=== PATIENT | female | born 1960 | race Caucasian/White ===

== ENCOUNTER → 2019-09-04 09:09 | Outpatient (CLI) | payer OTHER, SELFPAY ==
--- NOTE | ~2019-09-04 | MMUS_ITS ---
EXAMINATION: MM diagnostic yoselin BI w [facility], US axilla LT HISTORY: Left breast pain, left axillary mass TECHNIQUE: Bilateral 3-D tomosynthesis images performed and synthetic 2-D images were generated. CAD analysis was submitted and interpreted. High resolution targeted left axillary ultrasound was perform ed. COMPARISON: 08/23/2014 bilateral digital mammogram and 03/24/2010 right digital mammogram [facility] examinations BREAST PARENCHYMAL COMPOSITION: There are scattered areas of fibroglandular density. FINDINGS: MAMMOGRAPHIC FINDINGS: A surgical clip is present in the posterolateral upper outer quadrant of the left breast. No suspicious mass or architectural distortion, malignant calcification, skin thickening or retractio n or significant new or developing density is detected. ULTRASOUND: There is an approximately 8 x 10 mm mixed solid and fatty lesion in the left axilla. An additional approximately 8.5 x 12 mm hyperechoic fatty lesion is evident. No suspicious mass or shadowing is evident. IMPRESSION: 1. No mammographic evidence of malignancy 2. Routine mammographic screening is recommended. BI-RADS Category 2: Benign finding(s). Reviewed, dictated and finalized at location A. IMPRESSION: 1. No mammographic evidence of malignancy 2. Routine mammographic screening is recommended. BI-RADS Category 2: Benign finding(s).
== END ==
DX: R22.32 Localized swelling, mass and lump, left upper limb (principal); N64.4 Mastodynia
CPT/HCPCS: 76882; 77062; 77066; G0279

== ENCOUNTER 2019-11-27 04:18 | Emergency (ER) | payer OTHER, SELFPAY ==
--- NOTE | ~2019-11-27 | CT_ITS ---
EXAMINATION: CT brain wo con DATE: 11/27/2019 04:55 INDICATION: Headache TECHNIQUE: Computed tomography (CT) of the head was performed without intravenous contrast. Sagittal and coronal reconstructions were performed. The mA was adjusted according to patient size. Iterative reconstruction technique was employed. The dose-length product was 605.33 mGy-cm. COMPARISON: head CT dated 11/21/2018 FINDINGS: No acute intracranial hemorrhage, acute infarction or abnormal extra axial fluid collection. There is mild scattered white matter hypoattenuation consistent with chronic small vessel ischemic disease. Ventricles are normal and symmetric. No mass/mass effect. The orbits, paranasal sinuses and mastoid a ir cells are normal. Intracranial calcified cerebral atherosclerosis is noted. IMPRESSION: 1. No acute intracranial process. 2. Stable appearance of mild scattered white matter hypoattenuation consistent with chronic small ves jerry ischemic disease. Reviewed, dictated and finalized at location A. IMPRESSION: 1. No acute intracranial process. 2. Stable appearance of mild scattered white matter hypoattenuation consistent with chronic small vessel ischemic disease.
[2019-11-27 04:22] VITALS: BP 169/99; PULSE 71; RESP 16; TEMP 35.7; O2SAT 100
[2019-11-27 04:26] VITALS: BP 161/96; PULSE 75; RESP 17; TEMP 36.4; O2SAT 100
--- NOTE | 2019-11-27 04:39 | ED.HA ---
HPI - Headache General Chief Complaint: Headache Stated Complaint: migraine Time Seen by Provider: 11/27/19 04:38 Source: patient Mode of arrival: ambulatory Limitations: no limitations History of Present Illness HPI Narrative: Patient is a 59-year-old female complaining of migraine headache, states she has a history of migraines and takes Maxalt for, also states that she was also diagnosed with ocular migraine. Patient states this is her typical migraine headache. MD elicited complaint: headache Onset description: suddenly Location: left and frontal Pain scale (0-10): 9 Quality & Timing: aching Exacerbating factors: none Relieving factors: nothing Associated symptoms: none Related Data Home Medications Medication Instructions Recorded Confirmed alprazolam 0.25 mg PO BID 11/27/19 11/27/19 tadpjss-ncennqcqxj-WNH-caff 39 cap PO TID 11/27/19 11/27/19 [Butalbital Compound W/Codeine] galcanezumab-gnlm [Emgality Pen] 1 mg SUBCUT MONTHLY 11/27/19 hydrochlorothiazide 25 mg PO DAILY 11/27/19 11/27/19 sertraline 100 mg PO DAILY 11/27/19 11/27/19 tramadol 50 mg PO DAILY 11/27/19 Allergies Allergy/AdvReac Type Severity Reaction Status Date / Time Sulfa (Sulfonamide Allergy Unknown NAUSEA/VOMI Verified 11/27/19 04:38 Antibiotics) TING sulfamethoxazole Allergy Unknown Hives Verified 11/27/19 04:38 tetracycline Allergy Unknown Unknown Verified 11/27/19 04:38 trimethoprim Allergy Unknown Unknown Verified 11/27/19 04:38 CHEMICALS Allergy Unknown Unknown Uncoded 11/27/19 04:38 Review of Systems Review of Systems: All systems reviewed & are unremarkable except as noted in HPI and below Constitutional: Constitutional: Denies body ache(s), Denies chills, Denies excessive sweating, Denies fatigue, Denies fever(s), Denies headache(s), Denies lethargy, Denies malaise, Denies weakness and Denies weight loss Eyes: Eyes: Denies blurry vision, Denies change in vision and Denies loss of vision ENT: Denies dizziness, Denies ear discharge, Denies headache(s), Denies lip swelling, Denies epistaxis, Denies nasal congestion, Denies neck pain, Denies throat swelling and Denies tongue swelling Cardiovascular: Cardiovascular: Denies chest pain, Denies chest pain at rest, Denies chest pain with activity, Denies diaphoresis, Denies rapid heart rate, Denies edema, Denies irregular heart rhythm, Denies lightheadedness, Denies palpitations, Denies dyspnea and Denies dyspnea on exertion Respiratory: Respiratory: Denies chest congestion, Denies cough, Denies hemoptysis, Denies dyspnea and Denies dyspnea on exertion Gastrointestinal: Gastrointestinal: Denies abdominal pain, Denies melena, Denies hematochezia, Denies diarrhea, Denies nausea, Denies vomiting and Denies hematemesis Musculoskeletal: Musculoskeletal: Denies abnormal gait, Denies deformity, Denies joint swelling, Denies limited range of motion, Denies neck pain and Denies numbness Neurologic: Denies Abnormal speech present, Denies abnormal gait, Denies confusion, Denies dizziness, Denies focal weakness, Denies loss of vision, Denies numbness, Denies Other visual disturbances, Denies Sensory deficit (Neuro) and Denies weakness Psychiatric: Psychiatric: Denies confusion, Denies depression, Denies auditory hallucinations, Denies homicidal ideation and Denies suicidal ideation Endocrine: Endocrine: Denies cold intolerance, Denies excessive sweating, Denies fatigue, Denies heat intolerance and Denies palpitations Hematologic/Lymphatic: Hematologic/Lymphatic: Denies easy bleeding and Denies easy bruising Allergic/Immunologic: Allergic/Immunologic: Denies lip swelling, Denies throat swelling and Denies tongue swelling PMFSH Social History Social History Gender identity (if verbalized by the patient): Female Exam Const: General: cooperative, healthy appearing, comfortable, no acute distress, well developed, alert and awake; No confusion Orientation/consciousness: oriented to person, carina
[2019-11-27] MEDS: METOCLOPRAMIDE HCL INJ 10 MG/2 ML VIAL IV PUSH (04:58)
[2019-11-27] MEDS: SODIUM CHLORIDE 0.9% IV 1,000 ML 999 ML IV CONT (04:58)
[2019-11-27] MEDS: KETOROLAC 30 MG/ML VIAL (*BKC) IV PUSH (04:58)
[2019-11-27] MEDS: diphenhydrAMINE HCl INJ 50 MG/ML VIAL 25 MG IV PUSH (04:59)
[2019-11-27 05:36] VITALS: BP 151/87; PULSE 70; RESP 18; O2SAT 98
[2019-11-27 05:59] VITALS: BP 149/84; PULSE 71; RESP 18; O2SAT 98
== END 2019-11-27 06:12 | disposition home or self-care (01) ==
PROVIDERS: Emergency Provider Emergency Medicine; PCP Family Medicine
DX: G43.009 Migraine without aura, not intractable, without status migrainosus (principal)
CPT/HCPCS: 70450; 96361; 96374; 96375; 99284; J1200; J1885; J2765; J7030

== ENCOUNTER → 2019-12-13 12:10 | Outpatient (CLI) | payer OTHER, SELFPAY ==
--- NOTE | ~2019-12-13 | XR_ITS ---
EXAMINATION: HAND-BRAD ARTHRITIS 3+VIEWS DATE: 12/13/2019 12:46 INDICATION: Polyarthralgia. Myalgia. Vitamin D deficiency. TECHNIQUE: Posteroanterior, lateral, and oblique views of the left and of the right hands as well as a ballcatchers view of both hands were obtained. COMPARISON: None. FINDINGS: Normal alignment of both hands. No fracture. Mild polyarticular osteoarthritis with symmetric typical distribution at both hands including the triscaphe, first carpometacarpal and multiple interphalange al joints with distal predominance. Mild cystic change at the ulnar side of the proximal articular lux rface of the lunate in location typical for ulnocarpal impaction. IMPRESSION: 1. Mild polyarticular osteoarthritis with typical distribution at both hands. 2. Cystic change at the ulnar side of the right lunate which could be seen with ulnocarpal impaction. Reviewed, dictated and finalized at location A. RMATION SYSTEMS OPERATOR
--- NOTE | ~2019-12-13 | XR_ITS ---
. EXAMINATION: XR sacroiliac joints min 3V, XR hip BI 2V w AP pelvis DATE: 12/13/2019 12:46 INDICATION: Polyarthralgia, myalgia and vitamin D deficiency TECHNIQUE: 1. AP view of the pelvis and AP and frog-leg lateral views of both the left and right hips were obtai levy. 2. Frontal, and left and right oblique views of the sacroiliac joints were obtained. COMPARISON: None. FINDINGS: Alignment is normal. No fracture or suspected avascular necrosis. Bilateral hip and sacral iliac join t spaces are relatively preserved. No erosions or subarticular sclerosis at the sacroiliac joints to suggest an inflammatory sacroiliitis. There are a pair of appear to be tubal ligation clips in the pe lvis however both are located on the left side. A couple phleboliths in the left hemipelvis. IMPRESSION: 1. Normal bilateral hip and sacroiliac joints. Reviewed, dictated and finalized at location A. ARCH ASSISTANT IMPRESSION: 1. Normal bilateral hip and sacroiliac joints.
== END ==
DX: M19.042 Primary osteoarthritis, left hand (principal); M19.041 Primary osteoarthritis, right hand; M79.10 Myalgia, unspecified site; E55.9 Vitamin D deficiency, unspecified
CPT/HCPCS: 72202; 73130; 73521

== ENCOUNTER 2020-06-18 12:44 | Emergency (ER) | payer OTHER, SELFPAY ==
--- NOTE | ~2020-06-18 | XR_ITS ---
EXAMINATION: XR foot RT min 3V DATE: 06/18/2020 13:12 INDICATION: Right foot injury. TECHNIQUE: 4 views of right foot were obtained. COMPARISON: None. FINDINGS: Bone alignment is normal. No fracture. There is mild osteoarthritis of first metatarsophala ngeal joint and talonavicular joint. IMPRESSION: 1. Mild polyarticular osteoarthritis. Reviewed, dictated and finalized at location B.
--- NOTE | 2020-06-18 12:51 | ED.LOWEXIN ---
HPI - Extremity Injury (Lower) General Chief Complaint: Extremity Injury, Lower Stated Complaint: right foot pain Time Seen by Provider: 06/18/20 13:07 Source: patient and RN notes reviewed Mode of arrival: ambulatory Limitations: no limitations History of Present Illness HPI Narrative: 59-year-old female presents concern for right dorsal foot pain. Reports on Tuesday she dropped a heavy metal flashlight on her foot. She reports bruising beneath digits 3 and 4, pain with weightbearing. She denies pain at rest. She denies decreased strength, range of motion. Reports she has been using ice for pain relief. MD complaint: foot injury Related Data Home Medications Medication Instructions Recorded Confirmed alprazolam 0.25 mg PO BID 11/27/19 11/27/19 pkphioe-mijdimmmhu-TLS-caff 39 cap PO TID 11/27/19 11/27/19 [Butalbital Compound W/Codeine] galcanezumab-gnlm [Emgality Pen] 1 mg SUBCUT MONTHLY 11/27/19 hydrochlorothiazide 25 mg PO DAILY 11/27/19 11/27/19 tramadol 50 mg PO DAILY 11/27/19 bupropion HCl 150 mg PO DAILY 06/18/20 06/18/20 Allergies Allergy/AdvReac Type Severity Reaction Status Date / Time Sulfa (Sulfonamide Allergy Intermediate NAUSEA/VOMI Verified 06/18/20 13:07 Antibiotics) TING tetracycline Allergy Intermediate Nausea and Verified 06/18/20 13:07 Vomiting Review of Systems Review of Systems: Narrative: CONSTITUTIONAL: Denies malaise, chills, sweats, or fever. SKIN: Denies abrasions, lacerations MUSCULOSKELETAL: Reports right dorsal foot pain and swelling. Denies decreased strength, range of motion NEUROLOGIC: Denies numbness, weakness All systems reviewed & are unremarkable except as noted in HPI and below PMFSH Social History Social History Gender identity (if verbalized by the patient): Female Comments At time of signature, agree with nursing past medical, surgical, social and family history. There is no relevant family history pertinent to the presenting complaint Exam Narrative: Exam Narrative: GENERAL: Well-appearing, well-nourished, and in no acute distress. HEAD: Normocephalic, atraumatic. EYES: PERRLA, conjunctivae clear NECK: Supple. CHEST: Speaks in full sentences. No respiratory distress. HEART: Regular rate and rhythm. Normal and equal peripheral pulses. EXTREMITIES: Right foot, digits of right foot have normal strength and sensation, normal range of motion. No edema. Mild dorsal ecchymosis beneath digit 3. 5/5 strength with ankle and digit flexion and extension. Normal sensation with sensitivity to light touch and pain. No point tenderness. No open wounds, no skin tenting, no devitalized tissue or atrophy, no trophic changes, no obvious deformity, alignment normal, nearby joints and structures intact. Distal pulses palpable and equal bilaterally, skin warm, dry, pink. Capillary refill less than 3 seconds. SKIN: Warm, dry, no rash. NEURO: Alert and oriented x3. PSYCH: Normal mood and affect Course Course Emergency Course: Patient is aware of diagnosis, understands and agrees to treatment plan. Anticipatory guidance given. Patient agrees to follow-up as directed and is aware of reasons to seek care at the emergency department. Portions of this record may have been created with voice recognition software Vital Signs Vital signs: Reviewed. MDM - Extremity Injury (Lower) MDM Narrative Medical decision making narrative: Patients injury and pain is consistent with musculoskeletal etiology. No signs of neurological or vascular compromise on exam. Compartments and tissues are soft without signs of compartment syndrome. Pain is felt appropriate for further evaluation on an outpatient basis. Critical Care Time Critical Care Time Critical Care Time: No Discharge Plan Discharge Clinical Impression: Contusion of foot, right Qualifiers: Encounter type: initial encounter Qualified Code(s): S90.31XA - Contusion of right foot, initial encounter Patient Disposition: Home, S
[2020-06-18 13:02] VITALS: BP 167/100; PULSE 83; RESP 16; TEMP 37; O2SAT 100
== END 2020-06-18 13:30 | disposition home or self-care (01) ==
PROVIDERS: Emergency Provider Nurse Practitioner
DX: S90.31XA Contusion of right foot, initial encounter (principal); W20.8XXA Other cause of strike by thrown, projected or falling object, initial encounter; I10 Essential (primary) hypertension; I35.0 Nonrheumatic aortic (valve) stenosis; M19.90 Unspecified osteoarthritis, unspecified site; M79.7 Fibromyalgia; M06.9 Rheumatoid arthritis, unspecified; F41.9 Anxiety disorder, unspecified; F32.9 Major depressive disorder, single episode, unspecified
CPT/HCPCS: 73630; 99213; G0463

== ENCOUNTER 2020-08-05 13:09 | Outpatient (CLI) | payer OTHER, SELFPAY ==
--- NOTE | ~2020-08-05 | CT_ITS ---
EXAMINATION: CTA brain DATE: 08/05/2020 14:00 INDICATION: Headache, unspecified. TECHNIQUE: Computed tomographic angiography (CTA) of the head was performed without and with 100 mL O mnipaque-350 intravenous contrast. Automated exposure control and iterative reconstruction technique were employed. The dose-length product was 964.05 mGy-cm. Maximum intensity projection 3D reconstruc tions were created. Volume-rendered 3D reconstructions of the intracranial arteries were created by miya chamberlain technologist on a separate workstation. COMPARISON: Head CT 11/27/2019, brain MRI 07/24/2018 FINDINGS: There are scattered areas of low attenuation in the cerebral white matter, which is within normal limits for the patient's age. There is no intracranial hemorrhage, acute infarction, or abnorm al intracranial mass lesion. The ventricles are normal in size. The paranasal sinuses are clear. The orbits are normal. The mastoid air cells are normal. Right vertebral artery is dominant. There is no significant stenosis of basilar artery or the posterior cerebral arteries. Left P1 posterior cerebral artery is small, a normal variant. There is no significant stenosis of the intracranial internal car otid arteries or anterior or middle cerebral arteries. Anterior communicating artery is normal. There is no aneurysm. IMPRESSION: 1. Normal aging brain. No aneurysm or significant arterial stenosis. Reviewed, dictated and finalized at location A.
[2020-08-05 13:51] LABS: Estimated Glomerular Filt Rate 56
== END 2020-08-05 13:10 | disposition home or self-care (01) ==
LOC: ANHIMG 13:16
PROVIDERS: PCP Family Medicine; Visit Provider Psychiatry & Neurology Neurology
DX: R51.9 Headache, unspecified (principal)
CPT/HCPCS: 70496; Q9967

== ENCOUNTER → 2022-02-06 10:00 | Outpatient (CLI) | payer OTHER, SELFPAY ==
--- NOTE | ~2022-02-06 | MR_ITS ---
EXAMINATION: MR cervical spine wo con DATE: 02/06/2022 10:44 INDICATION: Chronic left-sided migraine headache. TECHNIQUE: Magnetic resonance imaging (MRI) of the cervical spine was performed without intravenous c ontrast. Sequences included sagittal T2-weighted FSE, sagittal T2-weighted FS FSE, sagittal T1-weight ed FSE, axial MERGE, and axial T2-weighted FSE. COMPARISON: None FINDINGS: Bone alignment is normal. Vertebral body heights are normal. There is mildly decreased disc height at C5-C6 and C6-C7. The spinal cord signal intensity is normal. The following disc levels are specifically discussed: C2-C3: The disc does not extend beyond the endplate margin. There is no uncovertebral joint osteoarth ritis. There is mild right facet joint osteoarthritis. There is no neural foraminal stenosis. There i s no central canal stenosis. C3-C4: The disc does not extend beyond the endplate margin. There is no uncovertebral joint osteoarth ritis. There is mild bilateral facet joint osteoarthritis. There is no neural foraminal stenosis. The re is no central canal stenosis. C4-C5: The disc does not extend beyond the endplate margin. There is mild left uncovertebral joint os teoarthritis. There is severe left facet joint osteoarthritis. There is mild left neural foraminal st enosis. There is no central canal stenosis. C5-C6: The disc is bulging. There is mild bilateral uncovertebral joint osteoarthritis. There is mild bilateral facet joint osteoarthritis. There is mild right neural foraminal stenosis. There is mild c entral canal stenosis. C6-C7: The disc is bulging. There is mild right and severe left uncovertebral joint osteoarthritis. T here is mild bilateral facet joint osteoarthritis. There is mild left neural foraminal stenosis. Ther e is mild central canal stenosis with ventral indentation of the spinal cord. C7-T1: The disc does not extend beyond the endplate margin. There is no uncovertebral joint osteoarth ritis. There is mild bilateral facet joint osteoarthritis. There is mild left neural foraminal stenos is. There is no central canal stenosis. IMPRESSION: 1. Mild cervical spondylosis. Reviewed, dictated and finalized at location A. TCHER HELPER
== END ==
PROVIDERS: PCP Family Medicine; Visit Provider Psychiatry & Neurology Neurology
DX: G43.909 Migraine, unspecified, not intractable, without status migrainosus (principal); M47.892 Other spondylosis, cervical region
CPT/HCPCS: 72141

== ENCOUNTER 2022-05-11 11:10 | Outpatient (CLI) | payer MEDICARE, SELFPAY ==
--- NOTE | ~2022-05-11 | XR_ITS ---
EXAM: XR knee LT min 4V, XR femur LT min 2V DATE: 05/11/2022 11:44 HISTORY: M79.606 - Pain in leg, MEDIAL DISTAL BRUISING, PAIN . COMPARISON: None available. FINDINGS: Tubal ligation clips. Greater trochanter enthesopathy. Pelvic phleboliths. Decreased minera lization. No fracture or dislocation. No lytic or blastic lesion. Mild medial and lateral knee joint space narrowing. Mild tricompartmental osteophytosis. Quadriceps and patellar tendon enthesopathy. No erosion or periosteal change. Soft tissues within normal limits. IMPRESSION: No acute osseous finding in the left femur or left knee. Osteopenia. Mild tricompartmenta l left knee osteoarthritis. Reviewed, dictated and finalized at location K. IMPRESSION: No acute osseous finding in the left femur or left knee. Osteopenia . Mild tricompartmental left knee osteoarthritis.
== END 2022-05-11 11:11 | disposition home or self-care (01) ==
LOC: ANHIMG 11:16
PROVIDERS: PCP Family Medicine; Visit Provider Nurse Practitioner Gerontology
DX: M25.569 Pain in unspecified knee (principal); M79.606 Pain in leg, unspecified; M85.88 Other specified disorders of bone density and structure, other site; M17.12 Unilateral primary osteoarthritis, left knee
CPT/HCPCS: 73552; 73564

== ENCOUNTER 2023-01-09 17:21 | Emergency (ER) | payer MEDICARE, SELFPAY ==
[2023-01-09] VITALS (15 sets, daily range): BP systolic 140–166; BP diastolic 84–98; PULSE 75–98; RESP 12–18; TEMP 36.6–36.9; O2SAT 92–100
--- NOTE | ~2023-01-09 | XR_ITS ---
XR wrist LT 2V 01/09/2023 17:57 Indication: Status post fall. Wrist pain. Procedure: 2 views left wrist Comparison: 12/13/2019 Findings: There is a comminuted distal radial fracture with dorsal displacement and angulation. There is a displaced ulnar styloid fracture. There is dorsal subluxation of the carpal bones. Moderate dif fuse soft tissue swelling. Impression: 1: Comminuted displaced and angulated distal radial fracture. 2: Ulnar styloid avulsion fracture. Reviewed, dictated and finalized at location A. RMATION SYSTEMS SPECIALIST Impression: 1: Comminuted displaced and angulated distal radial fracture. 2: Ulnar styloid avulsion fracture.
--- NOTE | ~2023-01-09 | XR_ITS ---
XR wrist LT 2V 01/09/2023 21:30 Indication: Post reduction wrist fracture Procedure: 2 views right wrist Comparison: 01/09/2023 Findings: There is a comminuted intra-articular fracture of the distal radius with improved alignment and persistent dorsal angulation. There is a displaced ulnar styloid fracture. Impression: 1: Improved alignment of comminuted intra-articular fracture distal aspect of the radius post reducti on. 2: Ulnar styloid avulsion fracture with displacement. Reviewed, dictated and finalized at location L. LIFEGUARD Impression: 1: Improved alignment of comminuted intra-articular fracture distal aspect of t he radius post reduction. 2: Ulnar styloid avulsion fracture with displacement.
--- NOTE | ~2023-01-09 | XR_ITS ---
XR wrist LT 2V 01/09/2023 20:59 Indication: Post reduction wrist fracture Procedure: 3 views left wrist Comparison: 01/09/2023 Findings: There is a comminuted displaced intra-articular distal radial fracture with stable alignmen t compared with prior study allowing for differences of technique. No significant change to ulnar sty loid avulsion fracture. Impression: 1: No significant alteration of alignment of comminuted intra-articular distal radial fracture allowi ng for differences of technique. Reviewed, dictated and finalized at location A. ONAL CLOTHING LAUNDRY AIDE Impression: 1: No significant alteration of alignment of comminuted intra-articular distal radial fracture allowing for differences of technique.
--- NOTE | 2023-01-09 17:32 | ED.GENADULT ---
HPI - General Adult General Chief complaint: Extremity Injury, Upper <WILBER Collado Last Filed: 01/10/23 01:28> Stated complaint: left wrist injury <WILBER Collado Last Filed: 01/10/23 01:28> Time Seen by Provider: 01/09/23 17:28 <Jose C Subramanian PA-C - Last Filed: 01/10/23 01:28> Source: patient <WILBER Collado Last Filed: 01/10/23 01:28> Mode of arrival: ambulatory <WILBER Collado Last Filed: 01/10/23 01:28> Limitations: no limitations <WILBER Collado Last Filed: 01/10/23 01:28> History of Present Illness HPI narrative: This is a 62-year-old female who presents to the ED with chief complaint of left wrist injury that occurred just prior to arrival. Reports that she was carrying laundry down stairs when she missed a step causing her to fall backwards. She then spun around and landed on her left side onto an outstretched left hand. Denies any further injury. Denies numbness or weakness. <Jose C Subramanian PA-C - Last Filed: 01/10/23 01:28> Related Data Allergies/adverse reactions: Allergies Allergy/AdvReac Type Severity Reaction Status Date / Time Vsbytbe-MHO-WiA Reductase Allergy Intermediate Muscle Pain Verified 01/09/23 17:22 Inhibitor Sulfa (Sulfonamide Allergy Intermediate NAUSEA/VOMI Verified 01/09/23 17:22 Antibiotics) TING tetracycline Allergy Intermediate Nausea and Verified 01/09/23 17:22 Vomiting clindamycin AdvReac Unknown Gastrointestinal Verified 01/09/23 17:22 Upset metoprolol AdvReac Confusion Verified 01/09/23 17:22 <WILBER Collado Last Filed: 01/10/23 01:28> Review of Systems Review of Systems: All systems as dictated in HPI <WILBER Collado Last Filed: 01/10/23 01:28> [facility] Past Medical History Medical History: Medical History Anxiety Aortic stenosis Chronic constipation Chronic fatigue Chronic pain Depression Early stage glaucoma Fibromyalgia Hypertension Intractable migraine Mitral valve disease Ocular migraine Polyarthritis Rheumatic fever/heart disease Rheumatoid arthritis Rheumatoid arthritis Vitamin D deficiency <Jose C Subramanian PA-C - Last Filed: 01/10/23 01:28> Family History Family History: Family History Father Hypertension Depression Heart disease Cerebrovascular accident Migraines Mother Hypertension Heart disease Migraines Sibling Migraines Other Migraines Asthma <Jose C Subramanian PA-C - Last Filed: 01/10/23 01:28> Social History Social History: Social History Social History: Smoking status: Never smoker Second hand tobacco smoke exposure: No Alcohol intake: never Substance use: never Substance use type: does not use Lack of Transportation: No Lack of Food: Never True Current Housing: I Have Housing Concerned About Future Housing: No Difficulty Paying Gas/Electric Bills: No Difficulty Paying for Meds: No Currently Unemployed: No Education: High School Diploma/GED Difficulty w/ Childcare or Family Care: No Living arrangements: with family Occupation/Education: unemployed Additional occupation/education comments: Disabled Gender identity (if verbalized by the patient): Female Sexual Orientation (if Verbalized by the Patient): Straight or Heterosexual Agree to blood products: Yes <Jose C Subramanian PA-C - Last Filed: 01/10/23 01:28> Exam Narrative: GENERAL: Well-appearing, well-nourished, and in no acute distress. HEAD: Normocephalic, atraumatic. EYES: PERRLA and EOMI. ENT: Nares clear, no rhinorrhea or epistaxis. Mucous membranes moist. Oropharynx without tonsillar hypertrophy exudate or other lesions. NECK: Supple. No adenopathy or masses. CHEST: No respiratory distress. Clear to auscultation. No wheezes r
[2023-01-09] MEDS: HYDROmorphone HCL INJ (*CRX) 1 MG/ML SYR 0.5 MG IV PUSH (17:53)
[2023-01-09] MEDS: ONDANSETRON INJ 4 MG/2 ML VIAL IV PUSH (17:54)
[2023-01-09] MEDS: LIDOCAINE HCL 1% LOCAL INJ 10 ML VIAL INFILTRATE (17:54)
--- NOTE | 2023-01-09 19:21 | PC.NURSE ---
provider requested to hold off on fentanyl administration because they may have to do a moderate sedation.
--- NOTE | 2023-01-09 20:13 | PC.NURSE ---
Consent obtained and signed by due to broken wrist
[2023-01-09] MEDS: fentaNYL CITRATE INJ (*CRX) 100 MCG/2 ML VIAL 50 MCG IV PUSH ×2 (20:21→21:12)
[2023-01-09] MEDS: SODIUM CHLORIDE 0.9% IV 1,000 ML 999 ML IV CONT (20:31)
--- NOTE | 2023-01-09 21:07 | PC.NURSE ---
First dose of Propofol was 70mg administered via IVP by Dr. Pickard at 2045. The patients wrist was then attempted to be reduced by Dr. Pickard and JOE Madison. After visualizing the x-ray Dr. Pickard wanted to reduce the wrist more. At 2056 Dr. Pickard administered 70mg Propofol via IVP. After second X-ray per Dr. Pickard and JOE Woodall the left wrist was okay to be splinted with a sugar tong.
--- NOTE | 2023-01-09 21:11 | PC.NURSE ---
Patient taken of oxygen and is sating 97% on room air.
== END 2023-01-09 22:03 | disposition home or self-care (01) ==
PROVIDERS: Emergency Provider Physician Assistant; PCP Family Medicine
DX: S52.592A Other fractures of lower end of left radius, initial encounter for closed fracture (principal); S52.612A Displaced fracture of left ulna styloid process, initial encounter for closed fracture; I35.0 Nonrheumatic aortic (valve) stenosis; I05.9 Rheumatic mitral valve disease, unspecified; E55.9 Vitamin D deficiency, unspecified; H40.9 Unspecified glaucoma; M06.9 Rheumatoid arthritis, unspecified; M79.7 Fibromyalgia; M19.90 Unspecified osteoarthritis, unspecified site; W10.9XXA Fall (on) (from) unspecified stairs and steps, initial encounter
CPT/HCPCS: 25605; 25624; 73100; 96374; 96375; 99285; J1170; J2405; J3010; J7030

== ENCOUNTER 2023-01-10 14:09 | Day surgery (SDC) | payer MEDICARE, SELFPAY ==
[2023-01-10] VITALS (13 sets, daily range): BP systolic 119–167; BP diastolic 70–88; PULSE 62–75; RESP 12–18; TEMP 36.1–36.7; O2SAT 94–99
--- NOTE | ~2023-01-10 | XR_ITS ---
EXAMINATION: XR fluoroscopy no charge DATE: 01/10/2023 16:35 INDICATION: Closed reduction left wrist fracture TECHNIQUE: 2 fluoroscopic images of the left wrist in dorsal palmar and lateral projections were obta ined during procedure performed by Dr. Mars. Radiologist was not present for the imaging or proced ure. The amount of fluoroscopy time used during this procedure was 5.5 minutes. COMPARISON: None. FINDINGS: Again seen is a comminuted intra-articular fracture of the distal left radius. There has been reducti on of the prior prominent dorsal angulation with now normal slight volar tilt of the distal articular surface. There is no evident significant fracture gap or incongruity along the articular surface on the provided projections. Assessment is however somewhat limited by superimposed casting material and fifth fluoroscopic technique which obscures fine bone detail. This also obscures the ulnar styloid a vulsion fracture which appears be likely in near-anatomic alignment. IMPRESSION: 1. Fluoroscopy utilized during reduction and casting of a comminuted intra-articular fracture of the distal left radius and ulna and ulnar styloid avulsion fracture. See procedure note for further detai l. Reviewed, dictated and finalized at location A. LEVEL BUSINESS ANALYST IMPRESSION: 1. Fluoroscopy utilized during reduction and casting of a comminuted intra-ford cular fracture of the distal left radius and ulna and ulnar styloid avulsion fr acture. See procedure note for further detail.
[2023-01-10] MEDS: LACTATED RINGERS 1,000 ML 30 ML IV CONT (15:00)
[2023-01-10] MEDS: ACETAMINOPHEN 500 MG TABLET 1000 MG PO (15:15)
[2023-01-10] MEDS: CELECOXIB 200 MG CAPSULE PO (15:15)
--- NOTE | 2023-01-10 15:21 | WPDANESEPPF ---
Anes - Initial Pre Proc Eval Procedure: Operation Date: 01/10/23 16:00 Proposed Procedures p Closed Reduction and Splinting Left Wrist - Moreno Mars MD Date/Time: 01/10/23 15:21 Surgeon: Moreno Mars MD Pre Op Diagnosis: left wrist fx Patient Data Age: 62 Gender: F Height: Weight: Allergies Allergy/AdvReac Type Severity Reaction Status Date / Time Nivnxwk-PTU-QrT Reductase Allergy Intermediate Muscle Pain Verified 01/10/23 15:02 Inhibitor Sulfa (Sulfonamide Allergy Intermediate NAUSEA/VOMI Verified 01/10/23 15:02 Antibiotics) TING tetracycline Allergy Intermediate Nausea and Verified 01/10/23 15:02 Vomiting clindamycin AdvReac Unknown Gastrointestinal Verified 01/10/23 15:02 Upset metoprolol AdvReac Confusion Verified 01/10/23 15:02 Home Medications Medication Instructions Recorded Confirmed Type hydrochlorothiazide 25 mg tablet 25 mg PO DAILY #90 tabs 05/24/22 01/10/23 Rx sertraline 50 mg tablet See Rx Instructions .Route 07/19/22 01/10/23 Rx .COMPLEX #135 tabs bupropion HCl 100 mg tablet See Rx Instructions .Route 10/13/22 01/10/23 Rx .COMPLEX #180 tabs amlodipine 5 mg tablet 5 mg PO DAILY #90 tabs 11/02/22 01/10/23 Rx rimegepant 75 mg disintegrating 75 mg PO ONCE PRN migraine 11/08/22 01/10/23 Rx tablet (Nurtec ODT) headache #16 tabs alprazolam 0.25 mg tablet 0.25 mg PO TID PRN panic attack(s) 11/09/22 01/10/23 Rx #90 tabs atogepant 60 mg tablet (Qulipta) 60 mg PO DAILY #28 tabs 12/14/22 01/10/23 Rx ubrogepant 100 mg tablet (Ubrelvy) 100 mg PO ONCE #3 tabs 12/14/22 01/10/23 Rx hydrocodone 5 mg-acetaminophen 325 1 tablet PO Q8H #14 tabs 01/09/23 01/10/23 Rx mg tablet Patient hx anesthesia problems: none Family hx anesthesia problems: none Results Review: All pre-operative results and documents have been reviewed as part of the pre-operative evaluation. FOR[facility], [facility] Past Medical History Medical History Anxiety Aortic stenosis Chronic constipation Chronic fatigue Chronic pain Depression Early stage glaucoma Fibromyalgia Hypertension Intractable migraine Mitral valve disease Ocular migraine Polyarthritis Rheumatic fever/heart disease Rheumatoid arthritis Rheumatoid arthritis Vitamin D deficiency Family History Family History Father Hypertension Depression Heart disease Cerebrovascular accident Migraines Mother Hypertension Heart disease Migraines Sibling Migraines Other Migraines Asthma Social History Social History Social History: Smoking status: Never smoker Second hand tobacco smoke exposure: No Alcohol intake: never Substance use: never Substance use type: does not use Lack of Transportation: No Lack of Food: Never True Current Housing: I Have Housing Concerned About Future Housing: No Difficulty Paying Gas/Electric Bills: No Difficulty Paying for Meds: No Currently Unemployed: No Education: High School Diploma/GED Difficulty w/ Childcare or Family Care: No Living arrangements: with family Occupation/Education: unemployed Additional occupation/education comments: Disabled Gender identity (if verbalized by the patient): Female Sexual Orientation (if Verbalized by the Patient): Straight or Heterosexual Agree to blood products: Yes Anes - Eval Final PreProcedure Day of Procedure 01/10/23 15:21 Patient weight: overweight Heart: regular rate and rhythm Lungs: clear to auscultation Airway: Mallampati scale class II Neurological: alert and oriented Last oral intake: 4 hours ASA classification: III Emergent: yes Anesthetic plan: proceed Anesthesia type and monitoring: general ETT Results Review: All pre-operative results and documents have been reviewed as part of the pre-operative evaluation. Inf
[2023-01-10] MEDS: FAMOTIDINE 20 MG/2 ML VIAL IV PUSH (15:33)
[2023-01-10] MEDS: ONDANSETRON INJ 4 MG/2 ML VIAL IV PUSH ×2 (15:33→18:45)
--- NOTE | 2023-01-10 16:35 | W.PM.PROC2 ---
Procedure Note - Detailed Date of Procedure 01/10/23 Pre-op Diagnosis LEFT DISTAL RADIUS FRACTURE Post-op Diagnosis Same Procedure Performed CLOSED REDUCTION WITH SPLINTING LEFT DISTAL RADIUS FRACTURE Surgeon Moreno Mars MD Anesthesia General Description of Procedure THE PATIENT WAS TAKEN TO THE OPERATING ROOM. THE SPLINT WAS REMOVED. THERE WAS A SUPERFICIAL ABRASION TO THE VOLAR FOREARM. THE WOUND WAS CLEANED AND THEN A STERILE DRESSING WAS APPLIED. THE LEFT DISTAL RADIUS WAS IMAGED WITH C ARM. THERE WAS A HIGHLY COMMINUTED DISTAL RADIUS FRACTURE WITH SIGNIFICANT DORSAL DISPLACEMENT. THE FRACTURE WAS REDUCED TO AN IMPROVED POSITION USING TRACTION AND FLEXION USING C ARM IMAGES. A SUGAR TONG PLASTER SPLINT WAS APPLIED WITH REDUCTION MAINTAINED. ONCE THE PLASTER WAS HARD C ARM IMAGES SHOWED CONTINUED IMPROVED POSITION TO THE DISTAL RADIUS. PATIENT WAS EXTUBATED AND SENT TO THE RECOVERY ROOM. Estimated Blood Loss 0 Complications No immediate complications Disposition PACU
[2023-01-10] MEDS: fentaNYL CITRATE INJ (*CRX) 100 MCG/2 ML VIAL 25 MCG IV PUSH ×6 (17:05→18:12)
--- NOTE | 2023-01-10 18:25 | WPDANESPNB ---
Anes - Peripheral Nerve Block Date/Time: 01/10/23 18:25 I have discussed with the patient/family/POA the placement of a peripheral nerve block for post-operative pain management, including associated risks, benefits, complications, and side effects. Alternative methods of post-operative analgesia were detailed. Questions were solicited and answers provided to the satisfaction of the patient/family/POA. Time-Out: A pre-procedural Time-Out was completed immediately before starting the procedure and confirmed: Patient Identification, Site, Procedure, Patient Position and the Availability of Requisite Equipment. Clinical Indications: Acute post-operative pain management requested by the operative surgeon. Nerve Block Insertion Note Anes-nerve block: supraclavicular left Patient position: supine Skin prep: chlorhexidine Needle: 22 gauge, stimulating, insulated echogenic needle. Needle length: 50 mm Technique: ultrasound Injectate: bupivacaine 0.5% with epi 5 mcg/ml (30cc- no epi) Observations: tolerated well Complications: none Procedure start time:: 1814 Procedure end time:: 1818
== END 2023-01-10 19:30 | disposition home or self-care (01) ==
PROVIDERS: PCP Family Medicine; Visit Provider Orthopaedic Surgery
PROC: (CPT 25605; principal; 2023-01-10 16:00)
DX: S52.352A Displaced comminuted fracture of shaft of radius, left arm, initial encounter for closed fracture (principal); F41.9 Anxiety disorder, unspecified; F32.A Depression, unspecified; I10 Essential (primary) hypertension; E55.9 Vitamin D deficiency, unspecified; K59.09 Other constipation; R53.82 Chronic fatigue, unspecified; G89.29 Other chronic pain; H40.89 Other specified glaucoma; G89.18 Other acute postprocedural pain; Z79.891 Long term (current) use of opiate analgesic; Z86.79 Personal history of other diseases of the circulatory system; Z82.49 Family history of ischemic heart disease and other diseases of the circulatory system; W18.30XA Fall on same level, unspecified, initial encounter
CPT/HCPCS: 25605; 64415; 99199; A9270; J0330; J0690; J2250; J2405; J2704; J3010; J7120

== ENCOUNTER 2023-01-18 01:06 | Day surgery (SDC) | payer MEDICARE, SELFPAY ==
[2023-01-15 09:54] VITALS: BMI 29.7
--- NOTE | 2023-01-15 09:55 | PC.NURSE ---
Report to the Outpatient Waiting Room, entrance under the green pavilion located off [facility], at time _0700_ on date _[id number]_. Planned Procedure Time: _0900_. Time changes happen often and if your time is changed the preop area will call you the afternoon before. - You and your visitor will be asked to self-screen and do not enter if you have any COVID symptoms. - A mask is optional within the hospital at this time. Patients may have clear liquids (water, carbonated beverages, clear teas, apple juice) until 3 hours prior to surgery with a maximum of 20 ounces. - No food from midnight until time of surgery Take the following medications with a SIP of water the morning of surgery: ___Amlodipine and Sertraline DO NOT STOP ANY OF YOUR OTHER PRESCRIPTION MEDICATIONS PRIOR TO SURGERY ?EXCEPT THE FOLLOWING Medications to discontinue per physician None Date to take last dose Please no make-up, nail macedonian, hairspray, perfume, deodorant, or body powder the day of surgery. No jewelry (including any body piercings) or valuables the day of surgery, leave them at home. Please take a shower or bath the night before, or the morning of, surgery with an antibacterial soap. Wear comfortable, loose fitting clothing. - Jewelry must be removed prior to entering the operating room. Rings and piercings that are not removed may be cut off. - The hospital will not accept responsibility for valuables. - Please leave all valuables, including medications, at home the day of surgery. If you are going home after surgery, a licensed haul driver must drive you home. - NO public transportation without another adult if you receive anesthesia. - We recommend that an adult stay with you for 24 hours following discharge. - We also recommend that you do not drive, make important decision, drink alcoholic beverages, or take any drugs that were not prescribed by your health care provider for at least 24 hours after your discharge time. Follow any additional instructions given to you from your surgeon. If you or anyone in your household have experienced Covid symptoms in the past week, please notify your surgeon or the nurse liaison at the phone number below for possible testing. Telephone instructions given to _Marianna__and asked if any additional questions and then verbalized understanding. Patient advised to call surgeon office or pre surgery nurse liaison [phone] if any additional questions.
[2023-01-18] VITALS (11 sets, daily range): BP systolic 114–167; BP diastolic 69–93; PULSE 84–104; RESP 12–20; TEMP 36.3–36.7; O2SAT 93–97
--- NOTE | ~2023-01-18 | XR_ITS ---
EXAMINATION: XR surgery orthopedic DATE: 01/18/2023 9:55 TRACER CLERK INDICATION: ORIF LT WRIST . TECHNIQUE: 4 fluoroscopic images of the left wrist were obtained during left wrist ORIF performed by the surgeon. I was not present in the operating room. Fluoroscopy exposure time was 499.2 seconds. r Kerma 16.28 mGy. DAP 0.55088 mGym2. COMPARISON: 01/09/2023 FINDINGS: Screw and plate fixation of the distal radius into near-anatomic alignment. IMPRESSION: Fluoroscopic documentation of left wrist ORIF. Please refer to the operative note for complete proced ural details . Reviewed, dictated and finalized at location K. ER CLERK IMPRESSION: Fluoroscopic documentation of left wrist ORIF. Please refer to the operative no te for complete procedural details .
--- NOTE | 2023-01-18 07:15 | WPDHPUPDATE1 ---
History and Physical Update Update Date/Time: 01/18/23 07:15 History and Physical has been reviewed, including an updated exam of the patient. There are NO changes in the patient's condition. Risks, benefits, and alternatives have been discussed and questions answered. Patient agrees to proceed with procedure.
--- NOTE | 2023-01-18 07:41 | ECG_ITS ---
Measurements Intervals [place] Rate: 73 P: 30 NM: 138 QRS: 9 QRSD: 95 T: 1 QT: 397 QTc: 438 Interpretive Statements SINUS RHYTHM NONSPECIFIC T-WAVE ABNORMALITY ABNORMAL ECG NO PREVIOUS ECG AVAILABLE FOR COMPARISON Electronically Signed On 01-18-2023 16:59:51 INSIDE BARREL LATHE OPERATOR by Daniel Rogel M.D.
--- NOTE | 2023-01-18 07:48 | WPDHPUPDATE1 ---
History and Physical Update Update Date/Time: 01/18/23 07:48 History and Physical has been reviewed, including an updated exam of the patient. There are NO changes in the patient's condition. Risks, benefits, and alternatives have been discussed and questions answered. Patient agrees to proceed with procedure.THE PATIENT HAS UNDERGONE CLOSED REDUCTION WITH IMPROVEMENT OF POSITION BUT WILL STILL REQUIRE ORIF LEFT DISTAL RADIUS FRACTURE. DISCUSSED NONOPERATIVE AND OPERATIVE TREATMENT OPTIONS WITH THE PATIENT. THE PATIENT'S QUESTIONS WERE ANSWERED. THE PATIENT DESIRES OPERATIVE TREATMENT. DISCUSSED __ORIF LEFT DISTAL RADIUS FRACTURE . RISKS OF SURGERY INCLUDING BUT NOT LIMITED TO NEUROVASCULAR DAMAGE, WOUND COMPLICATIONS, BLOOD CLOT, PULMONARY EMBOLUS, STROKE, AR, ANESTHETIC RISKS UP TO AND INCLUDING WERE REVIEWED. CONTINUED PAIN AND POSSIBLE DYSFUNCTION WERE EXPLAINED. NO GUARANTEES WERE OFFERED. THE PATIENT UNDERSTANDS AND WISHES TO PROCEED.
[2023-01-18] MEDS: ACETAMINOPHEN 500 MG TABLET 1000 MG PO (08:29)
[2023-01-18] MEDS: CELECOXIB 200 MG CAPSULE PO (08:32)
[2023-01-18] MEDS: LACTATED RINGERS 1,000 ML 30 ML IV CONT ×2 (08:40→14:35)
[2023-01-18] MEDS: MIDAZOLAM HCL (*CRX) 2 MG/2 ML VIAL IV PUSH (08:52)
[2023-01-18 08:57] LABS: Anion Gap 5 mmol/L (8-16); Blood Urea Nitrogen 16 mg/dL (7-17); Calcium 9.4 mg/dL (8.4-10.2); Carbon Dioxide 30 mmol/L (22-30); Chloride 104 mmol/L (98-107); Estimated CRCL calculation 52 ml/min; Estimated Glomerular Filt Rate > 60; Glucose 106 mg/dL (65-110); Potassium 3.8 mmol/L (3.4-5.0); Sodium 139 mmol/L (137-145)
--- NOTE | 2023-01-18 08:59 | WPDANESEPPF ---
Anes - Initial Pre Proc Eval Procedure: Operation Date: 01/18/23 09:00 Proposed Procedures p Open Reduction Internal Fixation of Left Wrist - Moreno Mars MD Date/Time: 01/18/23 08:59 Surgeon: Moreno Mars MD Pre Op Diagnosis: lef tdistal radius fracture Patient Data Age: 62 Gender: F Height: 1.57 m Weight: 74.6 kg Last Vital Signs Temp 36.7 C 01/18/23 07:12 Pulse 84 01/18/23 07:12 Resp 20 01/18/23 07:12 BP 167/86 H 01/18/23 07:12 Pulse Ox 96 01/18/23 07:12 O2 Del Method Room Air 01/18/23 07:12 Allergies Allergy/AdvReac Type Severity Reaction Status Date / Time Mlzaazl-QAQ-SdY Reductase AdvReac Intermediate Muscle Pain Verified 01/18/23 08:57 Inhibitor Sulfa (Sulfonamide AdvReac Intermediate NAUSEA/VOMI Verified 01/18/23 08:57 Antibiotics) TING tetracycline AdvReac Intermediate Nausea and Verified 01/18/23 08:57 Vomiting clindamycin AdvReac Unknown Gastrointestinal Verified 01/18/23 08:42 Upset metoprolol AdvReac Confusion Verified 01/18/23 08:42 Home Medications Medication Instructions Recorded Confirmed Type hydrochlorothiazide 25 mg tablet 25 mg PO DAILY #90 tabs 05/24/22 01/18/23 Rx sertraline 50 mg tablet See Rx Instructions .Route 07/19/22 01/18/23 Rx .COMPLEX #135 tabs amlodipine 5 mg tablet 5 mg PO DAILY #90 tabs 11/02/22 01/18/23 Rx alprazolam 0.25 mg tablet 0.25 mg PO TID PRN panic attack(s) 11/09/22 01/18/23 Rx #90 tabs Laboratory Tests 01/18/23 08:22 Sodium 139 mmol/L (137-145) Potassium 3.8 mmol/L (3.4-5.0) Chloride 104 mmol/L (98-107) Carbon Dioxide 30 mmol/L (22-30) Anion Gap 5 L mmol/L (8-16) BUN 16 mg/dL (7-17) Creatinine 0.90 mg/dL (0.7-1.0) Estim Creat Clear Calc 52 ml/min Estimated GFR > 60 (59 - ) Glucose 106 mg/dL (65-110) Calcium 9.4 mg/dL (8.4-10.2) Patient hx anesthesia problems: none Family hx anesthesia problems: none Results Review: All pre-operative results and documents have been reviewed as part of the pre-operative evaluation. [facility] Past Medical History Medical History Anxiety Aortic stenosis Chronic constipation Chronic fatigue Chronic pain Depression Early stage glaucoma Fibromyalgia Hypertension Intractable migraine Mitral valve disease Ocular migraine Polyarthritis Rheumatic fever/heart disease Rheumatoid arthritis Rheumatoid arthritis Vitamin D deficiency Family History Family History Father Hypertension Depression Heart disease Cerebrovascular accident Migraines Mother Hypertension Heart disease Migraines Sibling Migraines Other Migraines Asthma Social History Social History Social History: Smoking status: Never smoker Second hand tobacco smoke exposure: No Alcohol intake: never Substance use: never Substance use type: does not use Lack of Transportation: No Lack of Food: Never True Current Housing: I Have Housing Concerned About Future Housing: No Difficulty Paying Gas/Electric Bills: No Difficulty Paying for Meds: No Currently Unemployed: No Education: High School Diploma/GED Difficulty w/ Childcare or Family Care: No Living arrangements: with family Occupation/Education: unemployed Additional occupation/education comments: Disabled Gender identity (if verbalized by the patient): Female Sexual Orientation (if Verbalized by the Patient): Straight or Heterosexual Spiritual care concerns: No Agree to blood products: Yes Anes - Eval Final PreProcedure Day of Procedure 01/18/23 08:59 Patient weight: obese Heart: regular rate and rhythm Lungs: clear to auscultation Airway: Mallampati scale class II Neurological: alert and oriented Last oral intake: >/=
[2023-01-18] MEDS: SCOPOLAMINE 1.5 MG PATCH TRANSDERM (09:29)
[2023-01-18] MEDS: ceFAZolin 2 GM/D5W 50 ML 2 GM/50 ML BAG IVPB (09:30)
--- NOTE | 2023-01-18 12:00 | W.PM.PROC2 ---
Procedure Note - Detailed Date of Procedure 01/18/23 Pre-op Diagnosis lef tdistal radius fracture Post-op Diagnosis Same Procedure Performed ORIF LEFT DISTAL RADIUS FRACTURE Surgeon Moreno Mars MD Anesthesia General Description of Procedure THE LEFT UPPER EXTREMITY WAS PREPPED AND DRAPED IN THE STERILE FASHION. A STANDARD HENRYS APPROACH WAS USED TO THE VOLAR WRIST. DISSECTION THROUGH THE SKIN AND SUBCUTANEOUS TISSUE WAS PREFORMED. THE FCR TENDON WAS IDENTIFIED. THE RADIAL ARTERY WAS IDENTIFIED AND RETRACTED. THE THE FLEXOR POLLICIS AND THE COMMON FLEXOR TENDONS WERE IDENTIFIED AND RETRACTED. THE PRONATOR QUADRATUS WAS IDENTIFIED AND INCISED EXPOSING THE FRACTURE. IT WAS HIGHLY COMMINUTED. A TRIAL REDUCTION WAS PREFORMED AND FIXED WITH A K WIRE. NEXT A [employer] DISTAL RADIUS LOCKING PLATE WAS PLACED BRIDGING THE FRACTURE FRAGMENTS. SCREWS WERE PLACED DISTALLY AND PROXIMALLY. THE DISTAL SCREWS WERE IMAGED AND FOUND TO BE EXTRA ARTICULAR. C ARM IMAGES WERE PREFORMED AND HARDWARE AND FRACTURE FRAGMENTS WERE IN GOOD POSITION. THE TOURNIQUET WAS DEFLATED AND THE BLEEDERS WERE CAUTERIZED. THE FASCIA AND SUB CUTANEOUS LAYERS WERE APPROXIMATED WITH 3-0 VICRYL. THE SKIN WAS APPROXIMATED WITH LON. STERILE DRESSING AND SPLINT WAS APPLIED. PATIENT WAS EXTUBATED. Estimated Blood Loss 20 Complications No immediate complications Condition Stable Disposition PACU
[2023-01-18] MEDS: fentaNYL CITRATE INJ (*CRX) 100 MCG/2 ML VIAL 25 MCG IV PUSH ×4 (12:15→12:39)
[2023-01-18] MEDS: ONDANSETRON INJ 4 MG/2 ML VIAL IV PUSH (12:20)
--- NOTE | 2023-01-18 12:39 | WPDANESPNB ---
Anes - Peripheral Nerve Block Date/Time: 01/18/23 12:39 I have discussed with the patient/family/POA the placement of a peripheral nerve block for post-operative pain management, including associated risks, benefits, complications, and side effects. Alternative methods of post-operative analgesia were detailed. Questions were solicited and answers provided to the satisfaction of the patient/family/POA. Time-Out: A pre-procedural Time-Out was completed immediately before starting the procedure and confirmed: Patient Identification, Site, Procedure, Patient Position and the Availability of Requisite Equipment. Clinical Indications: Acute post-operative pain management requested by the operative surgeon. Nerve Block Insertion Note Anes-nerve block: supraclavicular left Patient position: supine Skin prep: chlorhexidine Needle: 22 gauge, stimulating, insulated echogenic needle. Needle length: 50 mm Technique: nerve stimulation lost at (mA) (0.3) and ultrasound Technique comment: done in pacu no sedation Injectate: bupivacaine 0.5% with epi 5 mcg/ml (20ml no epi) and dexamethasone (mg) (4) Procedure start time:: 1220 Procedure end time:: 1227
[2023-01-18] MEDS: diazePAM INJ (*CRX) 10 MG/2 ML SYRINGE 2.5 MG IV PUSH (12:52)
[2023-01-18] MEDS: oxyCODONE HCL (*CRX) 5 MG TAB IR PO (13:54)
== END 2023-01-18 15:00 | disposition home or self-care (01) ==
PROVIDERS: Anesthesiology; PCP Family Medicine; Visit Provider Orthopaedic Surgery
PROC: (CPT 25575; principal; 2023-01-18 09:00)
DX: S52.572A Other intraarticular fracture of lower end of left radius, initial encounter for closed fracture (principal); W10.9XXA Fall (on) (from) unspecified stairs and steps, initial encounter; G89.18 Other acute postprocedural pain; I10 Essential (primary) hypertension; M06.9 Rheumatoid arthritis, unspecified; M79.7 Fibromyalgia; F41.9 Anxiety disorder, unspecified; F32.A Depression, unspecified; E66.9 Obesity, unspecified; Z68.30 Body mass index [BMI] 30.0-30.9, adult
CPT/HCPCS: 25608; 64415; 36415; 80048; 93005; 99199; A9270; C1713; J0360; J0690; J1100; J1170; J2250; J2371; J2405; J2704; J3010; J3360; J7120

== ENCOUNTER 2023-05-26 08:36 | Outpatient (CLI) | payer MEDICARE, SELFPAY ==
--- NOTE | ~2023-05-26 | MR_ITS ---
MRI of the left shoulder Technique: Axial proton-density fat-sat images, coronal proton density fat-sat and T2 fat-sat images, and sagittal T1-weighted and T2 fat-sat images were acquired. Clinical History: Injury Findings: There is moderate AC joint degenerative change, superior bony productive change and small s ubacromial spur. Coracoclavicular, coracoacromial, and coracohumeral ligaments are intact. There is a full-thickness tear of the distal supraspinatus tendon near the insertion, with fluid-fill ed gap measuring 1.2 x 1.1 cm in extent. Tear affects the majority of the distal supraspinatus tendon . Infraspinatus tendon is intact, with moderate to advanced tendinosis, but no definite partial or fu ll-thickness tear. Subscapularis tendon is intact, with moderate tendinosis. Tendon of long head of t he biceps is intact. No labral tear identified. Inferior glenohumeral ligament is intact. There is minimal glenohumeral joint effusion and minimal fl uid in the subacromial/subdeltoid bursa. No muscle atrophy or edema. There is mild chondral thinning of the humeral head. Impression: 1.2 x 1.1 cm full-thickness tear of the distal supraspinatus tendon, involving the majority of the te ndon. Background rotator cuff tendinosis. Moderate AC joint degenerative change. Reviewed, dictated and finalized at [facility]. Impression: 1.2 x 1.1 cm full-thickness tear of the distal supraspinatus tendon, involving the majority of the tendon. Background rotator cuff tendinosis. Moderate AC joint degenerative change.
== END 2023-05-26 08:37 ==
LOC: MICIMG 08:38
PROVIDERS: PCP Orthopaedic Surgery; Visit Provider Orthopaedic Surgery
DX: S46.812A Strain of other muscles, fascia and tendons at shoulder and upper arm level, left arm, initial encounter (principal)
CPT/HCPCS: 73221

== ENCOUNTER 2023-06-22 13:13 | Outpatient (CLI) | payer MEDICARE, SELFPAY ==
--- NOTE | 2023-06-22 13:23 | ECG_ITS ---
SEE SCANNED COPY FOR CONFIRMED REPORT MTDD
[2023-06-22 13:52] LABS: Anion Gap 5 mmol/L (4-12); Blood Urea Nitrogen 14 mg/dL (7-17); Carbon Dioxide 33 mmol/L (22-30); Chloride 103 mmol/L (98-107); Estimated Glomerular Filt Rate 56; Glucose 112 mg/dL (65-110); Potassium 3.9 mmol/L (3.4-5.0); Sodium 141 mmol/L (137-145)
== END 2023-06-22 13:14 | disposition home or self-care (01) ==
LOC: ANHSURGERY 13:19
PROVIDERS: Anesthesiology; PCP Family Medicine; Visit Provider Orthopaedic Surgery
DX: Z01.818 Encounter for other preprocedural examination (principal); I10 Essential (primary) hypertension; I35.0 Nonrheumatic aortic (valve) stenosis; Z79.899 Other long term (current) drug therapy
CPT/HCPCS: 36415; 80048; 93005